=== PATIENT | male | born 1965 | race Caucasian/White ===

== ENCOUNTER 2018-08-23 21:29 | Emergency (ER) | payer BC ==
[2018-08-23] MEDS ORDERED: Fluorescein Sodium TOPICAL* 1 MG TEST STRIP OPHTHALMIC ONE (23:24)
[2018-08-23] MEDS ORDERED: Tetracaine 0.5% OPTH.SOL 4 ML* 1 DROP BTL ONE (23:24)
[2018-08-23] MEDS ORDERED: Polymyx/Trimethoprim OPTH* 10 ML BTL RIGHT EYE ONE (23:37)
--- NOTE | 2018-08-23 23:39 | ED ---
Throat Pain/Nasal Congestion - HPI Summary HPI Summary: 52-year-old male presents with potential scratch to his right eye today. He states he was eating cherries and then a branch went into his right eye. He states it feels like a scratched his eye. He states that it is a little bit red. He denies any change in vision. No blurry vision or double vision. No headache. He states eye is a little bit irritated. Sometimes wears contacts but has not worn them in some time. He wears glasses. No nausea vomiting. No bleeding. - History of Current Complaint Chief Complaint: EDEyeProblem Time Seen by Provider: 08/23/18 23:09 - Allergies/Home Medications Allergies/Adverse Reactions: Allergies Allergy/AdvReac Type Severity Reaction Status Date / Time No Known Allergies Allergy Verified 12/24/13 09:12 Home Medications: Home Medications Wellbutrin XL * PO BID 08/23/18 [History] PMH/Surg Hx/FS Hx/Imm Hx Endocrine/Hematology History: Denies: Hx Diabetes, Hx Thyroid Disease Cardiovascular History: Denies: Hx Hypertension Respiratory History: Denies: Hx Asthma, Hx Chronic Obstructive Pulmonary Disease (COPD) GI History: Denies: Hx Ulcer - Surgical History Surgery Procedure, Year, and Place: 2009 - umbilical hernia repair Infectious Disease History: No Infectious Disease History: Denies: Hx Clostridium Difficile, Hx Hepatitis, Hx Human Immunodeficiency Virus (HIV), Hx of Known/Suspected MRSA, Hx Shingles, Hx Tuberculosis, Hx Known/ Suspected VRE, Hx Known/Suspected VRSA, History Other Infectious Disease, Traveled Outside the [place] in Last 30 Days - Family History Known Family History: Positive: Non-Contributory - Social History Alcohol Use: Rare Substance Use Type: Reports: None Smoking Status (MU): Light Every Day Tobacco Smoker Type: eCigarettes Amount Used/How Often: Trying to quit Review of Systems Negative: Fever Positive: Erythema Negative: Chest Pain Negative: Shortness Of Breath All Other Systems Reviewed And Are Negative: Yes Physical Exam Triage Information Reviewed: Yes Vital Signs On Initial Exam: Initial Vitals Temp Pulse Resp BP Pulse Ox 97.8 F 79 18 141/89 96 08/23/18 21:38 08/23/18 21:38 08/23/18 21:38 08/23/18 21:38 08/23/18 21:38 Vital Signs Reviewed: Yes Appearance: Positive: Well-Appearing Skin: Positive: Warm, Dry Head/Face: Positive: Normal Head/Face Inspection Eyes: Positive: EOMI, TONIE, Conjunctiva Clear, Other: - 1/2cm uptake on scerla of right eye Respiratory/Lung Sounds: Positive: Clear to Auscultation, Breath Sounds Present Cardiovascular: Positive: Normal, RRR Musculoskeletal: Positive: Normal Neurological: Positive: Normal Psychiatric: Positive: Normal Procedures - Eye Procedure Right Alcaine Drops Administered: Yes - 1/2cm uptake on sclera at 9 position Diagnostics - Vital Signs Vital Signs Temp Pulse Resp BP Pulse Ox 08/23/18 21:38 97.8 F 79 18 141/89 96 - Laboratory Lab Statement: Any lab studies that have been ordered have been reviewed, and results considered in the medical decision making process. EENT Course/Dx - Course Course Of Treatment: 52-year-old male presents with potential scratch to his right eye today. He states he was eating cherries and then a branch went into his right eye. He states it feels like a scratched his eye. He states that it is a little bit red. He denies any change in vision. No blurry vision or double vision. No headache. He states eye is a little bit irritated. Sometimes wears contacts but has not worn them in some time. He wears glasses. No nausea vomiting. No bleeding. On exam conjunctiva injected on right. On fluorescein exam has 1/2cm uptake in the sclera at [address] patient on Polytrim for abrasion. Patient understands and agrees with plan. - Differential Diagnoses Differential Diagnoses: Conjunctivitis, Corneal Abrasion, Foreign Body - Diagnoses Provider Diagnoses: Abrasion of sclera of right eye Discharge - Sign-Out/Discharge Documenting (check all that apply): Patient Departure Patient Received Moderate/Deep Sedation with Procedure: No - Discharge Plan Condition: Good Disposition: HOME Patient Education Materials: Corneal Abrasion (ED) Referrals: Jing Knox MD [Primary Care Provider] - Additional Instructions: Place 1 drop in eye 4 times a day for 5 days Use artificial tears or saline to rinse eye for symptomatic relief Take Tylenol or ibuprofen for pain Follow up with ophthalmology if no improvement in 5 days Return to ED if develop any new or worsening symptoms - Billing Disposition and Condition Condition: GOOD Disposition: Home
[2018-08-24 00:17] VITALS: BP 113/75
== END 2018-08-24 00:10 | disposition home or self-care (01) ==
LOC: ED 21:29
DX: S05.01XA Injury of conjunctiva and corneal abrasion without foreign body, right eye, initial encounter (principal); W22.8XXA Striking against or struck by other objects, initial encounter; F17.290 Nicotine dependence, other tobacco product, uncomplicated
CPT/HCPCS: 99283; A9270-GY